=== PATIENT | male | born 1950 | race Caucasian/White ===

== ENCOUNTER 2017-09-24 12:40 | Emergency (ER) | payer OTHER ==
[~2017-09-24] VITALS: Ht 185.4 cm; Wt 101.0 kg
[2017-09-24 14:14] LABS: HEMATOCRIT 41.5 % (38.0-50.0); MCH 33.2 PG (29.0-34.0); MCHC 34.2 G/DL (30.0-36.0); MEAN PLAT.VOLUME 10.1 uM^3 (9.0-12.4); PLATELET COUNT 170 K/uL (156-360); RBC DIS.WIDTH-CV 13.1 % (11.8-14.6); RBC DIS.WIDTH-SD 46.5 % (39-53); RED BLOOD COUNT 4.28 M/uL (4.00-5.50); WHITE BLOOD COUNT 6.6 K/uL (4.1-10.2)
[2017-09-24 14:22] LABS: CHLORIDE 103 mEq/L (99-109); SODIUM 141 mEq/L (136-147)
[2017-09-24] MEDS ORDERED: TAMSULOSIN HCL0.4 MG PO (14:22)
[2017-09-24] MEDS ORDERED: METFORMIN HCL1000 MG PO (14:22)
[2017-09-24] MEDS ORDERED: JANUVIA25 M1 PO (14:23)
[2017-09-24] MEDS ORDERED: LEVOTHYROXINE150 MCG PO (14:23)
[2017-09-24] MEDS ORDERED: CIPRODEX OTIC7.5 ML LEFT EAR (14:23)
[2017-09-24 14:24] LABS: GLUCOSE 100 mg/dL (70-99)
[2017-09-24] MEDS ORDERED: VIAGRA100 MG PO (14:24)
[2017-09-24] MEDS ORDERED: EZETIMIBE-SIMV1 EAC3 PO (14:24)
[2017-09-24] MEDS ORDERED: LYRICA150 MG PO (14:24)
[2017-09-24] MEDS ORDERED: LEVOCETIRIZINE D5 MG PO (14:24)
[2017-09-24 14:25] LABS: ANION GAP 12 MEQ/L (2-14)
[2017-09-24 14:28] LABS: GFR ESTIMATE (CALCULATED) > 59 mL/min/
[2017-09-24 14:29] LABS: UREA NITROGEN (BUN) 11 mg/dL (9-23)
[2017-09-24] MEDS ORDERED: COLACE100 MG PO (15:00)
[2017-09-24] MEDS ORDERED: ANUSOL-HC21 GM PR (15:00)
[2017-09-24 15:14] VITALS: BP 103/65
== END 2017-09-24 15:15 | disposition home or self-care (01) ==
LOC: EME 12:40
PROVIDERS: Physician Assistant
DX: K64.4 Residual hemorrhoidal skin tags (principal); K62.5 Hemorrhage of anus and rectum; E03.9 Hypothyroidism, unspecified; E11.9 Type 2 diabetes mellitus without complications; Z79.84 Long term (current) use of oral hypoglycemic drugs; Z87.891 Personal history of nicotine dependence
CPT/HCPCS: 80048; 85027; 86850; 86900; 86901; 99281; 99284

== ENCOUNTER → 2017-10-19 | Outpatient (CLI) | payer OTHER ==
[~2017-10-19] VITALS: Ht 185.4 cm; Wt 96.6 kg
[~2017-10-19] MED LIST: ANUSOL-HC21 GM PR; CIPRODEX OTIC7.5 ML LEFT EAR; COLACE100 MG PO; EZETIMIBE-SIMV1 EAC3 PO; JANUVIA25 M1 PO; LEVOCETIRIZINE D5 MG PO; LEVOTHYROXINE150 MCG PO; LYRICA150 MG PO; METFORMIN HCL1000 MG PO; TAMSULOSIN HCL0.4 MG PO; VIAGRA100 MG PO
[2017-10-19 09:01] LABS: POINT-OF-CARE METER ID UU14107333
[2017-10-19 10:32] LABS: POINT-OF-CARE METER ID UU13113819
== END | disposition home or self-care (01) ==
LOC: AMB 08:07
PROVIDERS: Internal Medicine
PROC: 0DBL8ZX Excision of Transverse Colon, Via Natural or Artificial Opening Endoscopic, Diagnostic (ICD-10-PCS; principal; 2017-10-19)
DX: Z12.11 Encounter for screening for malignant neoplasm of colon (principal); D12.3 Benign neoplasm of transverse colon; K64.8 Other hemorrhoids; E11.9 Type 2 diabetes mellitus without complications; Z79.84 Long term (current) use of oral hypoglycemic drugs; Z88.0 Allergy status to penicillin
CPT/HCPCS: 82948; 88305